=== PATIENT | male | born 1955 | race American Indian/Alaskan Native ===

== ENCOUNTER 2018-04-21 09:38 | Outpatient (CLI) | payer BC ==
--- NOTE | 2018-04-21 13:26 | Treadmill Report ---
INDICATION: Chest pain. ORDERING PHYSICIAN: Allegra Rutherford MD FINDINGS: There is no scintigraphic evidence of myocardial ischemia. The left ventricle is normal in size. The left ventricular ejection fraction is measured at 64%. Normal wall motion and wall thickening is noted on gated imaging. CONCLUSION: Normal perfusion scan. JOB# [id number] AKBernardino/NTS
== END 2018-04-21 09:39 | disposition home or self-care (01) ==
LOC: ECHO 09:38
PROVIDERS: ATTEND Internal Medicine Cardiovascular Disease
DX: I10 Essential (primary) hypertension (principal); R07.9 Chest pain, unspecified; R94.31 Abnormal electrocardiogram [ECG] [EKG]
CPT/HCPCS: 78452; 93017; 93306; A9502

== ENCOUNTER 2019-01-20 07:52 | Outpatient (CLI) | payer BC ==
--- NOTE | 2019-01-20 12:36 | Magnetic Resonance Report ---
MR CERVICAL SPINE WITHOUT CONTRAST HISTORY: Cervical radiculopathy. TECHNIQUE: Axial T2 and T2 gradient. Sagittal T1, T2 and STIR. COMPARISON: None. FINDINGS: The cervical spinal cord is normal size and signal intensity throughout. No abnormal intramedullary signal is detected. Normal height and alignment of the cervical vertebral bodies. Normal bone marrow signal. There is diffuse disc desiccation throughout the cervical region. There is mild to moderate disc space narrowing at C5-6. Mild disc space narrowing at C6-7. The facet joints are in appropriate relationship. There is mild to moderate multilevel facet arthropathy. The paraspinal soft tissues are within normal limits. C2-3: No significant abnormality within the disc. Mild facet arthropathy on the right side. C3-4: No significant abnormality with the disc. Mild facet arthropathy, right greater than left. Bilateral neural foraminal narrowing is estimated at 25%. C4-5: Minimal bilateral uncovertebral spurring. Mild right facet arthropathy. Right neural foraminal narrowing is estimated at 25%. C5-6: Mild posterior and bilateral uncovertebral spurring, right greater than left, is identified. Minimal facet arthropathy. Right neural foraminal narrowing is estimated at 50-75%. Left neural foraminal narrowing is estimated at 25%. C6-7: Mild posterior and bilateral uncovertebral spurring. Minimal facet arthropathy. Bilateral neural foraminal narrowing is estimated at 25%. C7-T1: No significant abnormality. IMPRESSION: Mild to moderate cervical spondylosis as described above. C5-6 appears to be the most affected level where there is 50-75% right neural foraminal narrowing.
== END 2019-01-20 07:53 | disposition home or self-care (01) ==
LOC: MRI 07:52
PROVIDERS: ATTEND Family Medicine
DX: M47.812 Spondylosis without myelopathy or radiculopathy, cervical region (principal); M48.02 Spinal stenosis, cervical region; M46.82 Other specified inflammatory spondylopathies, cervical region
CPT/HCPCS: 72141

== ENCOUNTER 2019-01-20 12:51 | Emergency (ER) | payer BC, OTHER ==
[2019-01-20 13:03] VITALS: BP 144/87
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
[2019-01-20] MEDS ORDERED: THERMAZENE 50 GRAM TP ONE (14:26)
== END 2019-01-20 14:50 | disposition home or self-care (01) ==
LOC: ED 12:51
DX: T23.401A Corrosion of unspecified degree of right hand, unspecified site, initial encounter (principal); T65.891A Toxic effect of other specified substances, accidental (unintentional), initial encounter; Y93.89 Activity, other specified; Y92.89 Other specified places as the place of occurrence of the external cause; Y99.8 Other external cause status
CPT/HCPCS: 99282

== ENCOUNTER 2019-06-27 12:37 | Day surgery (SDC) | payer BC ==
[2019-06-27] MEDS ORDERED: SODIUM CHLORIDE 0.9% 1000 ML 1,000 ML IV SCH (13:00)
[2019-06-27] MEDS ORDERED: LIDOCAINE MPF (2%) 20 MG/1 ML VIAL 5 ML ONE (13:00)
--- NOTE | 2019-06-27 13:54 | Anesthesia Consultation ---
Anesthesia Consult and Med Hx Date of service: 06/27/19 - Airway Anesthetic Teeth Evaluation: Good ROM Head & Neck: Adequate Mental/Hyoid Distance: Adequate Mallampati Class: Class II Intubation Access Assessment: Probably Good - Pre-Operative Health Status ASA Pre-Surgery Classification: ASA2 Proposed Anesthetic Plan: MAC - Cardiovascular System Hx Coronary Artery Disease: No (high cholesterol)
--- NOTE | 2019-06-27 13:55 | Anesthesia Day of Surgery ---
Anesthesia Day of Surgery - Day of Surgery Patient Examined: Yes Patient H&P Reviewed: Yes Patient is NPO: Yes
[2019-06-27] MEDS ORDERED: PROPOFOL 200 MG/20 ML VIAL IV ONE ×2 (14:19)
--- NOTE | 2019-06-27 15:22 | Operative Report ---
Operative Report Operative Report: Procedure: Colonoscopy with , Multiple Hot Biopsy Polypectomies, Ablation of colon polyps. Attending physician: Farzad Link M.D. Egg Separator: Farzad Link M.D. Indication: Patient is a 64-year-old male who presents for screening colonoscopy. This colonoscopy serves to evaluate patient so that treatment may be directed based on the findings. Consent: Informed consent was obtained after advising the patient and family regarding nature of this procedure, its indications, potential benefits as well as possible complications including but not limited to bleeding perforation and adverse reaction to medication, infection as well as other cardiopulmonary complications. An informed written and verbal consent was then obtained after due opportunity was provided for questions and answers. Monitoring: Patient was monitored continuously with pulse oximetry and electrocardiographic recordings as well as blood pressure recordings. Vital signs remained stable throughout this procedure with no untoward events. Preoperative assessment: Patient was assessed immediately prior to this procedure for capacity to tolerate monitored anesthesia care and moderate sedation as well as general anesthesia. Patient's ASA classification is 2, Mallampati class is 2, Hyomental distance is 3. Instrument: Olympus video colonoscope.: CF-HQ 190L Medications: Propofol given intravenously in divided doses. For details please refer to anesthesia records. Description of procedure: Patient was placed in the left lateral decubitus position after achieving sedation, a digital rectal examination was performed following which the colonoscope was introduced into the anal verge and advanced to the cecum which was identified by the cecal valve, the appendiceal orifice, as well as by the cecal strap and direct transillumination. The colonoscope was subsequently withdrawn with careful inspection of all mucosal surfaces. Patient tolerated this procedure well and was subsequently taken to the recovery room. The following findings were noted. Findings: Patient had 3 diminutive sessile polyps seen in the ascending colon measuring about 5-7 mm. These were removed by hot biopsy polypectomy and retrieved. Patient also had 2 diminutive polyps in the ascending colon which were ablated. Patient had a few scattered diminutive diverticula in the ascending colon, sigmoid colon and descending colon. There was some retained liquid stool seen throughout the colon which was fairly easily irrigated. On the retroflexed view at the anal verge, patient had internal hemorrhoids. Impression: Ascending polyps status post hot biopsy polypectomy Ascending colon polyps status post ablation. Diverticular disease of the colon. Internal hemorrhoids. Retained stool. Plan: Follow pathology report. High-fiber diet. Repeat colonoscopy in 5 years if the polyps are adenomatous.
--- NOTE | 2019-06-27 15:23 | Discharge Summary ---
Short Stay Discharge Plan Activity: advance as tolerated Weight Bearing Status: Weight Bear as Tolerated Diet: regular Follow up with: DEJON NGUYEN MD [Primary Care Provider] - 7 Days
[2019-06-27 15:45] VITALS: BP 110/77
--- NOTE | 2019-06-27 20:39 | Post Anesthesia Evaluation ---
- Post Anesthesia Evaluation Patient Participated: Yes Airway Patent: Yes Stable Respiratory Function: Yes Nausea/Vomiting: No Temp > 96.8F: Yes Pain Manageable: Yes Adequeate Hydration: Yes Anesthesia Complications: No Block Receding Appropriately: Not Applicable Patient on Ventilator: No
== END 2019-06-27 12:38 | disposition home or self-care (01) ==
LOC: GIO 12:37
PROVIDERS: ATTEND Internal Medicine Gastroenterology
DX: Z12.11 Encounter for screening for malignant neoplasm of colon (principal); D12.2 Benign neoplasm of ascending colon; K57.30 Diverticulosis of large intestine without perforation or abscess without bleeding; K64.8 Other hemorrhoids; I10 Essential (primary) hypertension; B18.1 Chronic viral hepatitis B without delta-agent; Z79.82 Long term (current) use of aspirin; Z79.899 Other long term (current) drug therapy
CPT/HCPCS: 45384; 45388; 88305; J2704; J7030

== ENCOUNTER 2020-05-25 11:15 | Emergency (ER) | payer BC ==
[2020-05-25 11:35] VITALS: BP 145/87
--- NOTE | 2020-05-25 12:18 | Event Note ---
ED Screening Note ED Screening Note: left leg pain that began this morning no fall or injury sharp pain never had before This initial assessment/diagnostic orders/clinical plan/treatment(s) is/are subject to change based on patients health status, clinical progression and re- assessment by fellow clinical providers in the ED. Further treatment and workup at subsequent clinical providers discretion. Patient/guardian urged not to elope from the ED as their condition may be serious if not clinically assessed and managed. Initial orders include: US doppler
--- NOTE | 2020-05-25 15:38 | Vascular Lab Report ---
DUPLEX DOPPLER LOWER EXTREMITY VEINS, LEFT INDICATION / CLINICAL INFORMATION: left leg pain TECHNIQUE: Duplex doppler imaging was performed through the veins of the left lower extremity using v enous compression and other maneuvers. COMPARISON: None available. FINDINGS: COMMON FEMORAL VEIN: Negative. SUPERFICIAL FEMORAL VEIN: Negative. POPLITEAL VEIN: Negative. CALF VEINS: Negative. ADDITIONAL FINDINGS: None. IMPRESSION: No sonographic evidence for DVT Signer Name: Gagandeep Albarado MD Signed: 05/25/2020 3:34 PM Workstation Name: [id number]
--- NOTE | 2020-05-25 16:15 | Emergency Department Report ---
ED Extremity Problem HPI - General Chief complaint: Extremity Injury, Lower Stated complaint: L LEG PAIN Time Seen by Provider: 05/25/20 12:14 Source: patient Mode of arrival: Ambulatory Limitations: No Limitations - History of Present Illness Initial comments: 64-year-old -[place] male presents to the emergency room complaining of left lower extremity pain. Patient states that the pain feels like it is deep in his bone. Patient denies any swelling denies any injury. Patient works in the dialysis center here at the hospital. Patient has no other significant past medical history. Patient denies any known drug allergies. MD Complaint: extremity pain Location: left, lower extremity History of Same: No -: Yes arthralgia Radiation: distal Severity scale (0 -10): 7 Quality: aching Consistency: constant Improves with: nothing Worsens with: walking Associated Symptoms: denies other symptoms - Related Data Home Medications Medication Instructions Recorded Confirmed Last Taken Aspirin BABY CHEW TAB 81 mg PO DAILY 06/27/19 06/27/19 06/24/19 Lovastatin 40 mg PO DAILY 06/27/19 06/27/19 06/24/19 Previous Rx's Medication Instructions Recorded Last Taken Type Ibuprofen [Motrin 600 MG tab] 600 mg PO Q8H PRN #30 tablet 05/25/20 Unknown Rx Allergies Allergy/AdvReac Type Severity Reaction Status Date / Time No Known Allergies Allergy Verified 06/27/19 12:53 ED Review of Systems ROS: Stated complaint: L LEG PAIN Other details as noted in HPI Comment: All other systems reviewed and negative ED Past Medical Hx - Past Medical History Previous Medical History?: No Hx Hypertension: Yes - Surgical History Past Surgical History?: No - Social History Smoking Status: Never Smoker - Medications Home Medications: Home Medications Medication Instructions Recorded Confirmed Last Taken Type Aspirin BABY CHEW TAB 81 mg PO DAILY 06/27/19 06/27/19 06/24/19 History Lovastatin 40 mg PO DAILY 06/27/19 06/27/19 06/24/19 History Ibuprofen [Motrin 600 MG tab] 600 mg PO Q8H PRN #30 tablet 05/25/20 Unknown Rx ED Physical Exam - General Limitations: No Limitations General appearance: alert, in no apparent distress - Head Head exam: Present: atraumatic, normocephalic - Eye Eye exam: Present: normal appearance - ENT ENT exam: Present: mucous membranes moist - Expanded Lower Extremity Exam Left Hip exam: Present: full ROM Upper Leg exam: Present: normal inspection Knee exam: Present: normal inspection Lower Leg exam: Present: normal inspection, full ROM. Absent: tenderness, swelling Ankle exam: Present: normal inspection, full ROM. Absent: tenderness, swelling Neuro vascular tendon exam: Present: no vascular compromise Gait: Positive: observed and limited by pain - Back Exam Back exam: Present: normal inspection - Neurological Exam Neurological exam: Present: alert, oriented X3 - Psychiatric Psychiatric exam: Present: normal affect, normal mood - Skin Skin exam: Present: warm, dry, intact, normal color. Absent: rash ED Course Vital Signs 05/25/20 11:34 Temperature 98.1 F Pulse Rate 69 Respiratory 16 Rate Blood Pressure 145/87 [Left] O2 Sat by Pulse 99 Oximetry ED Medical Decision Making - Radiology Data Radiology results: report reviewed Patient: MARIKA BILLY MR#: [id number] : 1955 Acct:[id number] Age/Sex: 64 / M ADM Date: 05/25/20 Loc: ED Attending Dr: Ordering Physician: LAKE ORONA Date of Service: 05/25/20 Procedure(s): VL venous duplex LE LT Accession Number(s): [id number] cc: [place] [place] DUPLEX DOPPLER LOWER EXTREMITY VEINS, LEFT INDICATION / CLINICAL INFORMATION: left leg pain TECHNIQUE: Duplex doppler imaging was performed through the veins of the left lower extremity using venous compression and other maneuvers. COMPARISON: None available. FINDINGS: COMMON FEMORAL VEIN: Negative. SUPERFICIAL FEMORAL VEIN: Negative. POPLITEAL VEIN: Negative. CALF VEINS: Negative. ADDITIONAL FINDINGS: None. IMPRESSION: No sonographic evidence for DVT Signer Name: Gagandeep Albarado MD Signed: 05/25/2020 3:34 PM Workstation Name: [id number] Transcribed By: GJ Dictated By: Gagandeep Albarado MD Electronically Authenticated By: Gagandeep Albarado MD Signed Date/Time: 05/25/201533 DD/ 31 TD/TT: Patient: MARIKA BILLY MR#: [id number] : 1955 Acct:[id number] Age/Sex: 64 / M ADM Date: 05/25/20 Loc: ED Attending Dr: Ordering Physician: LAKE JACOBS Date of Service: 05/25/20 Procedure(s): XR tibia fibula 2V LT Accession Number(s): [id number] cc: [place] JAC[facility] Fluoro Time In Minutes: RIGHT TIBIA AND FIBULA, AP AND LATERAL VIEWS INDICATION: bone pain. COMPARISON: No relevant prior imaging study available. FINDINGS: No acute, displaced fracture or dislocation is seen. Mild degenerative changes are noted at the knee and ankle. No foreign bodies. IMPRESSION: 1. No acute findings. Signer Name: Dannie Li MD Signed: 05/25/2020 4:41 PM Workstation Name: [id number] Transcribed By: ZAN Dictated By: Dannie Li MD Electronically Authenticated By: Dannie iL MD Signed Date/Time: 05/25/20 1641 DD/ 1640 TD/TT: - Medical Decision Making 64-year-old -[place]ine[place] Guine[place] male presents to the emergency room complaining of left lower extremity pain. Patient states that the pain feels like it is deep in his bone. Patient denies any swelling denies any injury. Patient works in the dialysis center here at the hospital. Patient has no other significant past medical history. Patient denies any known drug allergies. Ultrasound was ordered by triage with a negative DVT study. Will order a tib- fib 1 view bedside. Offered patient pain medication he states he has not eaten and he will hold out. Critical care attestation.: If time is entered above; I have spent that time in minutes in the direct care of this critically ill patient, excluding procedure time. ED Disposition Clinical Impression: Pain of left lower extremity Disposition: DC-01 TO HOME OR SELFCARE Is pt being admited?: No Does the pt Need Aspirin: No Condition: Stable Additional Instructions: Ultrasounds negative for DVT/clot. X-ray of tibia-fibula is negative for any acute fractures or masses. I recommend [id number] Tylenol or ibuprofen for pain management. Please follow-up with your primary care provider for symptoms persist or gets worse. Prescriptions: Ibuprofen [Motrin 600 MG tab] 600 mg PO Q8H PRN #30 tablet PRN Reason: Pain Referrals: DEJON NGUYEN MD [Primary Care Provider] - 3-5 Days YOLANDA BOTELLO MD [Staff Physician] - 3-5 Days Forms: Work/School Release Form(ED)
--- NOTE | 2020-05-25 16:45 | XRay Report ---
RIGHT TIBIA AND FIBULA, AP AND LATERAL VIEWS INDICATION: bone pain. COMPARISON: No relevant prior imaging study available. FINDINGS: No acute, displaced fracture or dislocation is seen. Mild degenerative changes are noted at the knee and ankle. No foreign bodies. IMPRESSION: 1. No acute findings. Signer Name: Dannie Li MD Signed: 05/25/2020 4:41 PM Workstation Name: [id number]
== END 2020-05-25 17:37 | disposition home or self-care (01) ==
LOC: ED 11:15
DX: M79.605 Pain in left leg (principal); I10 Essential (primary) hypertension; Z79.899 Other long term (current) drug therapy

== ENCOUNTER 2022-01-20 09:01 | Emergency (ER) | payer BC, OTHER ==
[2022-01-20 09:30] VITALS: BP 138/87
[2022-01-20] MEDS ORDERED: ACETAMINOPHEN 325 MG TAB PO ONE (09:42)
[2022-01-20] MEDS ORDERED: KETOROLAC 30 MG/1 ML INJ IM ONE (09:42)
--- NOTE | 2022-01-20 09:44 | Emergency Department Report ---
ED Lower Extremity HPI - General Chief Complaint: Extremity Problem,Nontraumatic Stated Complaint: Left great toe pain Time Seen by Provider: 01/20/22 09:17 Source: patient Mode of arrival: Ambulatory Limitations: No Limitations - History of Present Illness Initial Comments: Patient is a pleasant and cooperative 66-year-old gentleman, who takes folic ac id, and a statin for high cholesterol, does not have a known diagnosis of gout or pseudogout, who presents to the ER today with a complaint of nontraumatic left great toe pain and left lateral foot swelling and pain for the past few days. He drinks 3 to 4 cups of water per day, occasionally consumes red wine, occasionally consumes red meat, but reports a typical balanced diet. He denies additional injuries and complaints. Had some improvement but incomplete improvement with appropriate pain medications here in the emergency room. Denies additional injuries and complaints Injury: Toes: Left (Left great toe) Type of Injury: unknown Place: home Severity: mild Improves With: rest Worsens With: movement, palpation - Related Data Previous Rx's Medication Instructions Recorded Last Taken Type Acetaminophen [Acetaminophen 8 650 mg PO Q6HR PRN #30 tab 01/20/22 Unknown Rx Hour] Naproxen [Naprosyn] 500 mg PO BID PRN #60 tablet 01/20/22 Unknown Rx Allergies Allergy/AdvReac Type Severity Reaction Status Date / Time No Known Allergies Allergy Verified 06/27/19 12:53 ED Review of Systems ROS: Stated complaint: LET LEG PAIN Other details as noted in HPI Comment: All other systems reviewed and negative Musculoskeletal: arthralgia ED Past Medical Hx - Past Medical History Previous Medical History?: Yes Hx Hypertension: Yes Additional medical history: high cholesterol - Surgical History Past Surgical History?: No - Social History Smoking Status: Never Smoker - Medications Home Medications: Home Medications Medication Instructions Recorded Confirmed Last Taken Type Acetaminophen [Acetaminophen 8 650 mg PO Q6HR PRN #30 tab 01/20/22 Unknown Rx Hour] Naproxen [Naprosyn] 500 mg PO BID PRN #60 tablet 01/20/22 Unknown Rx ED Physical Exam - General Limitations: No Limitations General appearance: alert, in no apparent distress - Head Head exam: Present: atraumatic, normocephalic - Eye Eye exam: Present: normal appearance, EOMI. Absent: nystagmus - ENT ENT exam: Present: normal exam, normal orophraynx, mucous membranes moist, normal external ear exam - Neck Neck exam: Present: normal inspection, full ROM. Absent: tenderness, meningismus - Respiratory Respiratory exam: Present: normal lung sounds bilaterally. Absent: respiratory distress, wheezes, rales, rhonchi, stridor, decreased breath sounds - Cardiovascular Cardiovascular Exam: Present: regular rate, normal rhythm, normal heart sounds. Absent: bradycardia, tachycardia, irregular rhythm, systolic murmur, diastolic murmur, rubs, gallop - GI/Abdominal GI/Abdominal exam: Present: soft. Absent: distended, tenderness, guarding, rebound, rigid, pulsatile mass - Rectal Rectal exam: Present: deferred - Extremities Exam Extremities exam: Present: normal inspection, full ROM, tenderness (Point tenderness to the joint of the left great toe.), normal capillary refill, other (2+ pulses noted in the bilateral upper and lower extremities. There is no palpable cord. negative Homans sign. Muscular compartments are soft. The pelvis is stable.). Absent: pedal edema, calf tenderness - Back Exam Back exam: Present: normal inspection, full ROM. Absent: tenderness, CVA tenderness (R), CVA tenderness (L), paraspinal tenderness, vertebral tenderness - Neurological Exam Neurological exam: Present: alert, oriented X3, normal gait, other (No facial droop. Tongue midline. Extraocular movements intact bilaterally. Facial sensation intact to light touch in V1, V2, V3 distribution bilaterally. 5 and a 5 strength in 4 extremities. Sensation intact to light touch in 4 extremities.). Absent: motor sensory deficit - Psychiatric Psychiatric exam: Present: normal affect, normal mood - Skin Skin exam: Present: warm, dry, intact, normal color. Absent: rash ED Course Vital Signs 01/20/22 01/20/22 01/20/22 09:07 09:29 12:04 Temperature 98.4 F 98.6 F Pulse Rate 72 67 Respiratory 18 18 Rate Blood Pressure 140/87 138/87 [Right] O2 Sat by Pulse 100 100 Oximetry O2 Sat by Pulse 99 Oximetry [ Digit-Finger] - Pulse Oximetry Interpretation Digit-Finger Initial Pulse Oximetry Readin O2 Sat by Pulse Oximetry: 99 Actions Taken: none ED Lower Extremity MDM - Lab Data Vital Signs 01/20/22 01/20/22 09:07 09:29 Temperature 98.4 F 98.6 F Pulse Rate 72 67 Respiratory 18 18 Rate Blood Pressure 140/87 138/87 [Right] O2 Sat by Pulse 100 100 Oximetry - Medical Decision Making Differential diagnosis, including but not limited to: Arthritis, gout, pseudogout Assessment and plan: 66-year-old gentleman, who is afebrile, with reassuring vital signs, presenting to the ER with left nontraumatic great toe pain, without redness, pus, streaking, minimal warmth over the left great toe, range of motion intact, no IV drug use, likely arthropathy. Weightbearing as tolerated, appropriate pain medication, outpatient follow-up with primary care doctor or rheumatology. Patient observed in this ER for hours without clinical decompensation. Resting comfortably in stretcher, and in no acute distress. Weightbearing as tolerated. Appropriate pain medications. Return precautions reviewed Critical care attestation.: If time is entered above; I have spent that time in minutes in the direct care of this critically ill patient, excluding procedure time. ED Disposition Clinical Impression: Toe pain, left Disposition: 01 HOME / SELF CARE / HOMELESS Is pt being admited?: No Does the pt Need Aspirin: No Condition: Stable Instructions: Uric Acid Nephropathy Additional Instructions: Please take the pain medications as directed. Participate in weightbearing as tolerated. Drink 6 cups of water per day. Avoid consumption of heavy and spicy foods, alcohol, tobacco, smoke products, and red meat. Consume plenty of fiber, vegetables and lean protein. Follow-up with a primary care doctor or a stem threshing machine operator within the next 10 days. Please return to the emergency room right away with new pain, worsened pain, migration of pain, projectile vomiting, change in mental status, confusion, inability tolerate liquid feeds, new, worsened or different symptoms not present on the initial emergency room evaluation Prescriptions: Acetaminophen [Acetaminophen 8 Hour] 650 mg PO Q6HR PRN #30 tab PRN Reason: Pain , Severe (7-10) Naproxen [Naprosyn] 500 mg PO BID PRN #60 tablet PRN Reason: Pain , Severe (7-10) Referrals: [facility] [Provider Group] - 3-5 Days [facility] [Provider Group] - 3-5 Days Forms: Work/School Release Form(ED)
== END 2022-01-20 11:30 | disposition home or self-care (01) ==
LOC: ED 09:01
DX: M79.675 Pain in left toe(s) (principal); I10 Essential (primary) hypertension
CPT/HCPCS: 96372; 99282; J1885